=== PATIENT | female | born 1950 | race Caucasian/White ===

== ENCOUNTER 2016-08-20 08:31 | Emergency (ER) | payer OTHER ==
[~2016-08-20] VITALS: Ht 162.6 cm; Wt 75.9 kg
[2016-08-20 09:01] LABS: HEMATOCRIT 46.8 % (36.0-46.0); MCH 31.9 PG (29.0-34.0); MCHC 33.1 G/DL (30.0-36.0); MCV 96.3 FL (83-99); MEAN PLAT.VOLUME 10.2 uM^3 (9.5-12.4); PLATELET COUNT 246 K/uL (156-360); RBC DIS.WIDTH-CV 12.2 % (11.8-14.6); RBC DIS.WIDTH-SD 43.3 % (39-53); RED BLOOD COUNT 4.86 M/uL (3.80-5.20)
[2016-08-20 09:09] LABS: CHLORIDE 105 mEq/L (99-109); POTASSIUM 4.2 mEq/L (3.7-5.4); SODIUM 138 mEq/L (136-147)
[2016-08-20 09:10] LABS: GLUCOSE 112 mg/dL (70-99)
[2016-08-20 09:12] LABS: ANION GAP 7 MEQ/L (2-14)
[2016-08-20 09:14] LABS: GFR ESTIMATE (CALCULATED) > 59 mL/min/
[2016-08-20 09:15] LABS: UREA NITROGEN (BUN) 12 mg/dL (9-23)
[2016-08-20] MEDS ORDERED: BENTYL10 MG PO (10:56)
[2016-08-20 11:07] VITALS: BP 129/67
== END 2016-08-20 11:08 | disposition home or self-care (01) ==
LOC: EME 08:31
DX: K62.5 Hemorrhage of anus and rectum (principal); R19.7 Diarrhea, unspecified; F17.200 Nicotine dependence, unspecified, uncomplicated
CPT/HCPCS: 80048; 85027; 86900; 86901; 99281; 99284